=== PATIENT | female | born 1955 | race Caucasian/White ===

== ENCOUNTER 2018-12-02 06:01 | Day surgery (SDC) | payer BC ==
[~2018-12-02] VITALS: Ht 162.6 cm; Wt 98.9 kg
[2018-12-02 07:07] VITALS: Ht 162.6 cm; Wt 98.9 kg
[2018-12-02] MEDS ORDERED: pepcid PO (07:11)
[2018-12-02] MEDS ORDERED: januvia PO (07:11)
[2018-12-02] MEDS ORDERED: amlodipine PO (07:11)
[2018-12-02] MEDS ORDERED: ASPI-817 PO (07:11)
[2018-12-02] MEDS ORDERED: atorvastatin PO (07:11)
[2018-12-02] MEDS ORDERED: losartan PO (07:11)
[2018-12-02] MEDS ORDERED: metformin PO (07:11)
[2018-12-02 07:23] VITALS: BP 168/82; PULSE 89; RESP 24
--- NOTE | 2018-12-02 07:34 | PREAC ---
Date/Time of Note Date/Time of Note DATE: 12/02/18 TIME: 07:31 Anesthesia Eval and Record Evaluation Time Pre-Procedure Interview DATE: 12/02/18 TIME: 07:31 Age 63 Sex female NPO: 8 hrs Preoperative diagnosis Abdominal Pain Planned procedure Colonoscopy Past Medical History Past Medical History: Includes Cardio: HTN, Dyslipidemia Endo: Diabetes GI: GERD Surgery & Anesthesia Issues No known issue Meds Anticoagulation: No Beta Jagdish within 24 hr: No Reason Beta Jagdish not given: Pt. not on B-Jagdish Reported Medications [atorvastatin] No Conflict Check, PO DAILY 12/02/18 Aspirin* (Aspirin* EC) 81 Mg Tablet.dr, 81 MG PO DAILY, TAB 12/02/18 [pepcid] No Conflict Check, PO DAILY 12/02/18 [januvia] No Conflict Check, PO DAILY 12/02/18 [metformin] No Conflict Check, PO DAILY 12/02/18 [losartan] No Conflict Check, PO DAILY 12/02/18 [amlodipine] No Conflict Check, PO DAILY 12/02/18 Discontinued Reported Medications [januvia] No Conflict Check, PO DAILY 12/02/18 Meds reviewed: Yes Allergies Coded Allergies: No Known Allergy (Unverified , 12/02/18) Allergies Reviewed: Yes Labs/Studies Labs Reviewed: Reviewed by anesthesiologist test: N/A Pre-procedure Exam Last vitals Vital Signs Date Temp Pulse Resp B/P (MAP) Pulse Ox O2 O2 Flow FiO2 Time Delivery Rate 12/02/18 97.8 89 24 168/82 100 Room Air 07:23 (110) Airway: Adequate mouth opening Mallampati: Mallampati II Teeth: Normal Lung: Normal Heart: Normal ASA Physical Status ASA physical status: 2 Emergency: None Planned Anesthetic General/MAC: MAC Pre-operative Attestations Prior to commencing anesthesia and surgery, the patient was re-evaluated, there was verification of: *The patient's identity *The results of appropriate recent lab work and preoperative vital signs *The above evaluation not changing prior to induction *Anesthetic plan, risk benefits, alternative and complications discussed with patient/family; questions answered; patient/family understands, accepts and wishes to proceed. CARA NIELSON MD Dec 02, 2018 07:34
[2018-12-02] MEDS ORDERED: PROPOFOL 40 ML ONE (07:35)
[2018-12-02] MEDS ORDERED: PROPOFOL 20 ML ONE (07:36)
--- NOTE | 2018-12-02 08:22 | PAC ---
Date/Time of Note Date/Time of Note DATE: 12/02/18 TIME: 08:22 Post-Anesthesia Notes Post-Anesthesia Note Last documented vital signs Vital Signs Date Temp Pulse Resp B/P (MAP) Pulse Ox O2 O2 Flow FiO2 Time Delivery Rate 12/02/18 97.8 89 24 168/82 100 Room Air 07:23 (110) Activity: WNL Respiratory function: WNL Cardiovascular function: WNL Mental status: Baseline Pain reasonably controlled: Yes Hydration appropriate: Yes Nausea/Vomiting absent: Yes CARA NIELSON MD Dec 02, 2018 08:22
[2018-12-02 08:47] VITALS: BP 143/78; RESP 20
== END 2018-12-02 12:49 | disposition home or self-care (01) ==
LOC: GIL 06:01
PROVIDERS: ATTEND Internal Medicine Gastroenterology
DX: K92.1 Melena (principal); K64.8 Other hemorrhoids; K57.30 Diverticulosis of large intestine without perforation or abscess without bleeding; D12.6 Benign neoplasm of colon, unspecified; I10 Essential (primary) hypertension; E11.9 Type 2 diabetes mellitus without complications; E78.5 Hyperlipidemia, unspecified; Z79.82 Long term (current) use of aspirin; Z79.84 Long term (current) use of oral hypoglycemic drugs
CPT/HCPCS: 45380; 82962; 88305; Z7610